=== PATIENT | female | born 1990 | race Caucasian/White ===

== ENCOUNTER 2020-07-18 12:30 | Outpatient (RCR) | payer BC, SELFPAY ==
--- NOTE | 2020-07-18 13:44 | PC.NURSE ---
IN 1115 OUT 1245 HISTORY: Pt. delivered at [facility] at 39/5 weeks. had a should dystocia at delivery. Mother had no complications after delivery. Infant is now 10 days old. Infant appears to be well cared for. has been seen by ICP as scheduled. last seen by ICP on 07/17/2020. Mother reports: Mom feels that baby has a shallow latch, that she often has trouble getting infant to want to latch or to stop crying enough to latch and that baby is sleepy at the breast. Mom states she is feeling overwhelmed with /pumping/supplementing. Mother wishes: Mom would like a less demanding feeding plan, a deeper latch and to be able to get more sleep.Mom would also like to have the baby getting breastmilk. Mom states she is only putting the baby to breast to help with supply. Currently at 6-8 wets per day and 6-8 yellow seedy stools per day. weight: 8-12 Lowest weight: 7-14 Last Weight: 8-12 ( Peds office yesterday) Pre feeding weight: 3963 Post feeding weight: 4013 OBSERVATION: Mom latches infant to breast in football hold. Infant attaches with shallow latch. Mom states latch is painful. Mom assisted to break suction and assisted in getting a deeper latch. then latches on with nice wide open mouth and is assisted in coming up and over breast. Mom reports less pain with this latch. Demonstrated to mom how to roll more of the breast into infants mouth and how to help flange lips out. Mother reports latch feeling much better. Assisted mom to do crosscradle hold and reviewed ways to stimulate baby to stay awake at breast. Mom encouraged to do compression of the breast while infant nurses and while pumping. Educated mom on listening for swallowing, keeping the baby in close to the breast and correcting latch. eats for 15 minutes on each breast. Baby takes 15mls of supplemental breastmilk after feeding per bottle. Mom states she still feels her breasts are full and she has some questions and concerns about pumping. Watched mom pump post feeding. Flange sizes were good, upon palpation of breast many firm places noted. Mom asks about a hospital grade pump and is assisted in trying hospital grade pump. After pumping for 15 minutes with [employer] pump mom is able to pump out 2 more ounces and breasts feel soft. Mom also has concerns with feeling aching in breast after feeding not on nipples. No signs of mastitis or thrush noted. Breasts feel empty after pumping with hospital grade pump. No clogged duct felt. Mom told to continue to monitor for clogged ducts and educated on the signs of mastitis. Spoke to mom about pump settings and making sure they are not pulling to hard. Told mom to call for follow up if this sensation is continuing. Mom told if she wanted to rental a hospital grade pump that they are offered through [employer] and at other retail locations. Encouraged patient to check with her Insurance also. PLAN: Mother will follow above feeding plan using techniques for deeper latch. Mom will stimulate baby to stay awake at breast, offer both breasts per feeding and use compression while infant is nursing. Then mom will offer supplemental feeding to baby via a bottle. If mom feels breasts are more empty, has heard frequent infant swallowing and seems more content, mom will only pump if she desires or as needed to store milk. Mom encouraged to pump for approx 20 minutes for any feeding that baby does not go to breast and allow infant to have as much as desired via bottle. Mom would like to only pump for night time feedings and have Dad give bottle at this time. Mother will call with further questions or concerns.
--- NOTE | 2020-07-25 10:10 | PC.NURSE ---
Mom called today to follow up post appt on 07/18/2020. States she has went to exclusively pumping and she feels her mental health is doing much better. States she was frustrated and crying trying to get the baby to latch but now feels confident and happy with pumping milk for the baby. Mom is pumping on average 4-4 1/2 ounces every 3 hours and baby is eating 3-5 ounces every 3 hours. States baby is having many voids and stools each day. Mom states that she rented a hospital grade pump from [employer] on Friday and she feels it empties her breast more and is not feeling the pain after feeding/pumping anymore. Mom asks how she can boost her supply if needed. Encouraged mom to drink to thirst, eat plenty of calories and prioritize getting enough rest. Told mom she could increase her pumping times from 15 minutes to 20 minutes or so each feeding. Told mom she could also work in an extra pump through out the day to build up her supply. Mom encouraged to call back with any questions and to keep her regularly scheduled peds appt.
== END 2020-09-14 08:29 | disposition home or self-care (01) ==
LOC: ANHOBOP 12:30
PROVIDERS: Visit Provider Pediatrics
DX: Z39.1 Encounter for care and examination of lactating mother (principal)
CPT/HCPCS: 99213; G0463

== ENCOUNTER 2020-09-06 12:21 | Outpatient (RCR) | payer BC, SELFPAY ==
--- NOTE | 2020-09-06 12:33 | PC.NURSE ---
IN 1100 OUT 1200 HISTORY: Pt. delivered at [facility] at 39/5. had shoulder dystocia at delivery. Mother had no complications after delivery. Infant will be 2 months old on 09/08/20. Infant appears to be well cared for. Infant has been seen by ICP as scheduled. Infant last seen by ICP on 08/08/20. Has appt scheduled for next week. Mother reports: She has been mostly pumping and bottlefeeding infant breastmilk. Mom states she gives 3 ounces of breastmilk each feeding and then is supplemented with 1 ounce of formula if still acting hungry. Mom states she is able to pump around 6-8 ounces every 3 hours. Spoke to mom about being able to exclusively feed breastmilk due to her supply. Mom states she does this in order to not waste breastmilk and to be able to save breastmilk for the future as she may stop pumping around 6 months. Discussed breastmilk is the gold standard with fresh is best then refrigerated then frozen milk. Mother states when she attempts to put infant to breast is frustrated easily. Mother wishes: She would like to try to get infant to breast for some of the feedings. Currently at 8 wets per day and 3 yellow seedy stools per day. weight: 8-12 Last Weight: 10-0 Pre feeding weight: 12-10 (5727) Post feeding weight: 12 10.3 (5736) OBSERVATION: Mom attempted to latch infant onto right breast in cross cradle position. latches and does not suck. on and off the breast and becomes frustrated. Attempted nipple shield on right breast and latches and sucks for a few sucks. Breastmilk applied to outside of shield and latched back on to breast. After a few attempts continues at breast and begins to rhythmically suck and swallow. stays on breast for 5-10 minutes and then begins to cry and pull off breast. burped and does not go back on right breast. Attempted to get infant to breastfeed on left side in both the football and side lying position. Infant becomes more frustrated and does not latch and feed on left side. Mom feeds infant breastmilk from bottle. Mom asked if she should toss left over milk. Mom told that you are to discard milk after 1 hour due to the saliva getting into milk. PLAN: Mother will attempt to latch onto breast with nipple shield for 15 minutes or less if mom or baby are feeling frustrated. Mom will then feed via bottle and pump. Mom will continue offering as much milk as would like from the bottle after breastfeedings at this time. Mom will pump before feedings to drawing in machine tender helper in getting the milk flowing prior to latching infant on breast. Mom will use compression and massage the breast as infant is . Mom will try to feed when infant is still sleepy or at first signs of hunger. Mom voiced that she has had moments that she feels anger toward . Spoke to mom about PP Adjustment Disorder and PP depression signs. Told mom to call her OB for help if she is not feeling her usual self or having these signs. Mom states she spoke to her OB at her follow up visit about this but will call if needed. Mom feels overall she is managing her frustrations well. Mom told to go to the ER with any thoughts that she wants to harm herself or someone else. Mom denies these feelings. Mother will call with further questions or concerns.
== END 2020-10-20 08:10 | disposition home or self-care (01) ==
LOC: ANHOBOP 12:21
PROVIDERS: Visit Provider Pediatrics
DX: Z39.1 Encounter for care and examination of lactating mother (principal)
CPT/HCPCS: 99212; G0463

== ENCOUNTER 2022-09-10 10:31 | Emergency (ER) | payer OTHER, SELFPAY ==
--- NOTE | ~2022-09-10 | XR_ITS ---
EXAMINATION: XR ankle LT min 3V DATE: 09/10/2022 11:03 INDICATION: Left ankle pain TECHNIQUE: Anteroposterior, lateral, mortise, and additional oblique view of the ankle were obtained. COMPARISON: None. FINDINGS: Bone alignment is normal. There is no fracture. There is mild soft tissue swelling of ankle . 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 IMPRESSION: 1. No acute osseous abnormality. Reviewed, dictated and finalized at location L. ICAL REVIEW NURSE
--- NOTE | 2022-09-10 10:42 | ED.LOWEXIN ---
HPI - Extremity Injury (Lower) General Chief Complaint: Extremity Injury, Lower Stated Complaint: Lt Ankle Paid Due To Fall Time Seen by Provider: 09/10/22 11:36 Source: patient, RN notes reviewed and old records reviewed Mode of arrival: ambulatory Limitations: no limitations History of Present Illness HPI Narrative: 32-year-old presents to the [facility] complaints of left ankle pain since this morning. Patient was changing car seats and was getting out of a truck when she stepped down and her ankle rolled in for sleep. Swelling noted. Has applied ice, no other treatment prior to arrival patient is 25 weeks , Ob at [facility] patient reports that she had talked to her OB at [facility] and told what had happened. Was recommended that she seek treatment and x-ray. They stated the x-ray would be okay, reports that they told her to be shielded. Baby heart tones 150 Onset (ago): hour(s) (3) Injury: Left: ankle ( lateral) Related Data Home Medications Medication Instructions Recorded Confirmed aspirin 81 mg tablet,delayed 81 mg DIRECTED 09/10/22 09/10/22 release (Adult Low Dose Aspirin) vits no.126-ferrous fum 1 tablet DIRECTED 09/10/22 09/10/22 28 mg iron-folic acid 800 mcg tablet (Classic ) Allergies Allergy/AdvReac Type Severity Reaction Status Date / Time No Known Allergies Allergy Verified 09/10/22 11:30 Review of Systems Review of Systems: All systems reviewed & are unremarkable except as noted in HPI and below Constitutional: Constitutional: Reports no additional constitutional complaints Eyes: Eyes: Reports no additional eye complaints ENT: Reports system reviewed and no additional complaints, except as documented Cardiovascular: Cardiovascular: Reports no additional cardiovascular complaints, Denies chest pain and Denies dyspnea Respiratory: Respiratory: Reports no additional respiratory complaints, Denies chest congestion, Denies cough and Denies dyspnea Gastrointestinal: Gastrointestinal: Reports no additional gastrointestinal complaints, Denies abdominal pain, Denies nausea and Denies vomiting Musculoskeletal: Musculoskeletal: Reports as per HPI, Reports arthralgias and Reports joint swelling Integumentary/Breasts: Skin/Breast: Reports system reviewed and no additional complaints, except as docu Neurologic: Reports system reviewed and no additional complaints, except as documented Psychiatric: Psychiatric: Reports no additional psychiatric complaints Allergic/Immunologic: Allergic/Immunologic: Reports no additional allergic/immunologic complaints PMFSH Comments At the time of my signature, I reviewed and agree with the nursing past medical, surgical, social, and family history. There is no relevant family history pertinent to the patient complaint. Exam Const: General: cooperative, healthy appearing, comfortable, no acute distress, well developed, alert and well nourished Nutritional Appearance: well nourished Orientation/consciousness: patient oriented x3 Limitations: no limitations HENMT: Head: normal to inspection Ears: hearing grossly normal bilaterally and external ears normal Face/Nose/Sinus: Normal external nose present, Normal nares present, Normal nasal mucous membranes and turbinates present and normal facial exam Face and sinus: normal facial exam Mouth: Yes Normal oral and palatal mucosa present, Yes lip normal and Yes moist mucous membranes Throat: posterior oropharynx normal and uvula midline Eyes: General: appearance normal, both eyes and all related structures Alignment and Position: alignment normal Periorbital: periorbital findings normal Conjunctivae: conjunctivae normal Pupils: Equal, round and reactive pupils present EOM: EOMs intact bilaterally Neck: Neck: normal visual inspection, full ROM, no lymphadenopathy and no meningeal signs Chest: Chest palpation & inspection: normal inspection of the chest Resp: Effort & Insp
[2022-09-10 10:43] VITALS: BP 114/69; PULSE 84; RESP 16; TEMP 36.3; O2SAT 100
--- NOTE | 2022-09-10 11:25 | PC.NURSE ---
Doppler FHT's 150's. movement noted.
== END 2022-09-10 11:59 | disposition home or self-care (01) ==
PROVIDERS: Emergency Provider Nurse Practitioner
DX: S93.402A Sprain of unspecified ligament of left ankle, initial encounter (principal); S96.912A Strain of unspecified muscle and tendon at ankle and foot level, left foot, initial encounter; X50.9XXA Other and unspecified overexertion or strenuous movements or postures, initial encounter; Z86.16 Personal history of COVID-19
CPT/HCPCS: 73610; 99213; G0463

== ENCOUNTER 2023-05-09 17:35 | Emergency (ER) | payer OTHER, SELFPAY ==
[2023-05-09 17:45] VITALS: BP 113/75; PULSE 93; RESP 16; TEMP 36.7; O2SAT 99
[2023-05-09 17:47] VITALS: BP 113/75; PULSE 93; RESP 16; TEMP 36.7; O2SAT 99
--- NOTE | 2023-05-09 17:50 | ED.URI ---
HPI - URI/Sore Throat General Chief Complaint: Upper Respiratory Infection Stated Complaint: Cough,Wheezing Time Seen by Provider: 05/09/23 17:51 Source: patient, RN notes reviewed and old records reviewed Mode of arrival: ambulatory Limitations: no limitations History of Present Illness HPI Narrative: 32-year-old female presents to the [facility] with complaints of cough and wheezing. Symptoms started about 10 days ago Patient is breast feeding Onset (ago): day(s) (10) Related Data Allergies Allergy/AdvReac Type Severity Reaction Status Date / Time No Known Allergies Allergy Verified 05/09/23 17:46 Review of Systems Review of Systems: All systems reviewed & are unremarkable except as noted in HPI and below Constitutional: Constitutional: Reports no additional constitutional complaints Eyes: Eyes: Reports no additional eye complaints ENT: Reports system reviewed and no additional complaints, except as documented Cardiovascular: Cardiovascular: Reports no additional cardiovascular complaints, Denies chest pain and Denies dyspnea Respiratory: Respiratory: Reports as per HPI, Denies chest congestion, Reports cough, Denies dyspnea and Reports wheezing Gastrointestinal: Gastrointestinal: Reports no additional gastrointestinal complaints, Denies abdominal pain, Denies nausea and Denies vomiting Musculoskeletal: Musculoskeletal: Reports no additional musculoskeletal complaints Integumentary/Breasts: Skin/Breast: Reports system reviewed and no additional complaints, except as docu Neurologic: Reports system reviewed and no additional complaints, except as documented Psychiatric: Psychiatric: Reports no additional psychiatric complaints Allergic/Immunologic: Allergic/Immunologic: Reports no additional allergic/immunologic complaints PMFSH Comments At the time of my signature, I reviewed and agree with the nursing past medical, surgical, social, and family history. There is no relevant family history pertinent to the patient complaint. Exam Const: General: cooperative, healthy appearing, comfortable, no acute distress, well developed, alert and well nourished Nutritional Appearance: well nourished Orientation/consciousness: patient oriented x3 Limitations: no limitations HENMT: Head: normal to inspection Ears: hearing grossly normal bilaterally, external ears normal, TM's normal bilaterally, EAC's normal and mastoids normal Face/Nose/Sinus: Normal external nose present, Normal nares present, Normal nasal mucous membranes and turbinates present, normal facial exam and face symmetric Face and sinus: normal facial exam and face symmetric Mouth: Yes Normal oral and palatal mucosa present, Yes lip normal and Yes moist mucous membranes Throat: posterior oropharynx normal and uvula midline Eyes: General: appearance normal, both eyes and all related structures Alignment and Position: alignment normal Periorbital: periorbital findings normal Pupils: Equal, round and reactive pupils present EOM: EOMs intact bilaterally Neck: Neck: normal visual inspection, full ROM, no lymphadenopathy and no meningeal signs Chest: Chest palpation & inspection: normal inspection of the chest Resp: Effort & Inspection: normal respiratory effort and able to speak in complete sentences Auscultation: no crackles, no rales, no rhonchi and wheezes (right ) expiratory wheezes Cardio: Rate: regular rate Rhythm: regular rhythm Back/Spine/Pelvis: Cervical Spine: cervical ROM normal Skin: General skin exam: normal color and no rashes or lesions noted Lesions: no lesions Rashes: no rashes Wounds: no wounds Neuro: General: patient oriented x3, gait normal, tone normal, moves all extremities and no meningeal signs Cranial nerves: Yes Equal, round and reactive pupils present Cognition (Neuro): normal cognition Speech: normal speech Gait exam (Neuro): Normal gait present Extrem: General: normal to inspection, full ROM, capillary refill normal and
== END 2023-05-09 18:12 | disposition home or self-care (01) ==
PROVIDERS: Emergency Provider Nurse Practitioner
DX: J40 Bronchitis, not specified as acute or chronic (principal); J06.9 Acute upper respiratory infection, unspecified
CPT/HCPCS: 99213; G0463